=== PATIENT | female | born 1990 | race Caucasian/White ===

== ENCOUNTER → 2017-10-03 13:55 | Observation (INO) ==
--- NOTE | 2017-10-03 12:25 | OB/GYN Progress Note ---
Date of Encounter: 10/03/17 Time of Encounter: 12:23 - Assessment and Plan (1) 26 weeks gestation of Current Visit: Yes Status: Acute Continue care as scheduled labor precautions given Discharge orders given (2) Abdominal cramping affecting Current Visit: Yes Status: Acute UA- Large leukocytes/many bacteria; rx for macrobid given Vaginosis panel-negative Subjective - Subjective Interval history: Ms. [place] 27-year-old female at 26 weeks 3 days who presents with complaints of lower abdominal cramping with some vaginal discharge since Tuesday. She states she has also recently had some urinary frequency without urgency or dysuria. She endorses good movement and denies leakage of fluid and vaginal bleeding. She also denies headache, vision changes, epigastric pain. Objective - Exam FHR: category 1 FHR comments: Baseline 130 Moderate variability Accelerations present 10x10 Few variable decelerations FHR Category II Auscultation: bilateral: normal Abdomen: Present: normal appearance, soft, gravid Uterus: Present: normal, firm Comments: SSE: Copious amounts of thick, yellowish discharge observed.
[2017-10-03 12:46] LABS: Bilirubin,Urine Negative (Negative); Blood,Urine Large (Negative); Clarity,Urine Clear (Clear); Color,Urine Yellow (Yellow); Glucose,Urine (UA) Normal (Normal); Ketones,Urine Negative (Negative); Leukocyte Esterase,Urine Moderate (Negative); Nitrite,Urine Negative (Negative); Protein,Urine Negative (Neg-Trace); Urobilinogen,Urine Normal (Normal)
[2017-10-03 13:05] LABS: Squamous Epithelial Cell,Urine Moderate per lpf (None-Few)
[2017-10-03 13:07] LABS: Bacteria,Urine Many per hpf (None-Few)
[2017-10-03 13:32] LABS: Candida DNA Not Detected (Not Detect); Gardnerella DNA Not Detected (Not Detect); Trichomonas DNA Not Detected (Not Detect)
[2017-10-03 14:17] LABS: Amphetamine Screen,Urine Negative ng/mL (Cutoff=1000); Barbiturate Screen,Urine Negative ng/mL (Cutoff=200); Benzodiazepines Screen,Urine Negative ng/mL (Cutoff=200); Cannabinoid Screen,Urine Negative ng/mL (Cutoff = 50); Cocaine Screen,Urine Negative ng/mL (Cutoff= 300); Opiate Screen,Urine Negative ng/mL (Cutoff=300); Phencyclidine Screen,Urine Negative ng/mL (Cutoff=25)
== END | disposition home or self-care (01) ==
LOC: 1NENULAB
PROVIDERS: ADMIT Obstetrics & Gynecology; ATTEND Obstetrics & Gynecology

== ENCOUNTER → 2017-11-22 11:07 | Observation (INO) ==
--- NOTE | 2017-11-22 08:37 | OB/GYN Progress Note ---
Date of Encounter: 11/22/17 Time of Encounter: 08:32 - Assessment and Plan (1) 33 weeks gestation of Current Visit: Yes Status: Acute admitted for observation (2) Vaginal bleeding during Current Visit: Yes Status: Acute Post coital bleeding Blood type: O+ speculum exam: No active bleeding (3) NST (non-stress test) reactive on surveillance Current Visit: Yes Status: Acute FHR 155 bpm moderate variability +15x15 accels no decels noted. Cat. 1 tracing Subjective - Subjective Principal diagnosis: Vaginal bleeding Interval history: Patient is a 27 y/o at 33w4d presents to labor and delivery with complaints of vaginal bleeding that started after having intercourse this morning. Patient reports bleeding seems to have slowed down. Patient reports small blood clots earlier. Patient denies contractions or leaking fluid. Patient reports +FM. Patient denies any other concerns at this time. Antepartum ROS: vaginal bleeding (per HPI), no loss of fluid, no movement normal, no contractions Objective - Vital Signs Vital Signs: Intake and Output 11/21/17 11/22/17 11/22/17 23:59 07:59 15:59 Other: Weight 77.2 kg Patient Weight 11/22/17 23:59 Weight 77.2 kg - Exam FHR: auscultation normal, category 1 FHR comments: FHr 155 bpm moderate variability +15x15 accels no decels noted. irregular contractions noted. Cat. 1 tracing Auscultation: bilateral: normal Abdomen: Present: normal appearance, soft, gravid Uterus: Present: normal Cervical dilation: deferred Comments: Speculum exam: small amount of blood noted in vagina. NO active bleeding noted. Cervix appears to be closed.
[2017-11-22 08:41] LABS: Bilirubin,Urine Negative (Negative); Blood,Urine Large (Negative); Clarity,Urine Cloudy (Clear); Color,Urine Yellow (Yellow); Glucose,Urine (UA) Normal (Normal); Ketones,Urine Negative (Negative); Leukocyte Esterase,Urine Large (Negative); Nitrite,Urine Negative (Negative); PH,Urine 7.5 pH Units (5.0-8.0); Protein,Urine Trace mg/dL (Neg-Trace); Specific Gravity,Urine 1.011 (1.010-1.025); Urobilinogen,Urine Normal (Normal)
[2017-11-22 08:43] LABS: Bacteria,Urine Moderate per hpf (None-Few); Hyaline Casts,Urine Few per lpf (None-Few); Squamous Epithelial Cell,Urine Many per lpf (None-Few); WBC,Urine 30-50 per hpf (0-3)
[2017-11-22 08:50] LABS: Amphetamine Screen,Urine Negative ng/mL (Cutoff=1000); Barbiturate Screen,Urine Negative ng/mL (Cutoff=200); Benzodiazepines Screen,Urine Negative ng/mL (Cutoff=200); Cannabinoid Screen,Urine Negative ng/mL (Cutoff = 50); Cocaine Screen,Urine Negative ng/mL (Cutoff= 300); Opiate Screen,Urine Negative ng/mL (Cutoff=300); Phencyclidine Screen,Urine Negative ng/mL (Cutoff=25)
== END | disposition home or self-care (01) ==
LOC: 1NENULAB
PROVIDERS: ADMIT Advanced Practice Midwife; ATTEND Advanced Practice Midwife

== ENCOUNTER 2017-12-22 08:41 | Inpatient (IN) ==
[2017-12-22] MEDS ORDERED: Ringers Solution, Lactated 1,000 ML ONE ×2 (08:52→12:44)
[2017-12-22] MEDS ORDERED: Naloxone 0.4 MG/ML INJ IVP PRN (08:54)
[2017-12-22] MEDS ORDERED: *HR* Nalbuphine 10 MG/ML AMPUL IVP PRN (08:54)
[2017-12-22] MEDS ORDERED: Famotidine 20 MG/2 ML VIAL IVP PRN (08:54)
[2017-12-22] MEDS ORDERED: Metoclopramide 10 MG/2 ML VIAL IVP PRN (08:54)
[2017-12-22] MEDS ORDERED: Lidocaine 1% 20 ML MDV INFILT PRN (08:54)
[2017-12-22] MEDS ORDERED: D5% in Lactated Ringers 1,000 ML IVC SCH (09:00)
[2017-12-22] MEDS ORDERED: Oxytocin 20 units/ LR 1000 mL 20 UNIT/1,000 ML BAG IVC SCH (09:00)
[2017-12-22 09:17] LABS: Basophils # 0.1 K/mcL (0.0-0.2); Basophils % 0.3 %; Eosinophils # 0.1 K/mcL (0.0-0.6); Eosinophils % 0.7 %; Hemoglobin 13.1 g/dL (11.5-15.4); Lymphocytes # 1.9 K/mcL (0.6-4.6); Lymphocytes % 12.8 %; Mean Corpuscular HGB Conc 34.5 g/dL (31.6-35.5); Mean Corpuscular Hemoglobin 31.2 pg (28.0-33.3); Mean Corpuscular Volume 90.5 fL (83.0-100.0); Mean Platelet Volume 12.5 fL (9.4-12.4); Monocytes # 1.2 K/mcL (0.0-1.3); Monocytes % 8.5 %; Neutrophils # 11.2 K/mcL (1.6-8.9); Platelet Count 157 K/mcL (140-400); Red Cell Distribution Width 13.2 % (11.5-14.5); Segmented Neutrophils % 76.7 %
[2017-12-22 09:28] LABS: Amphetamine Screen,Urine Negative ng/mL (Cutoff=1000); Barbiturate Screen,Urine Negative ng/mL (Cutoff=200); Benzodiazepines Screen,Urine Negative ng/mL (Cutoff=200); Cannabinoid Screen,Urine Negative ng/mL (Cutoff = 50); Cocaine Screen,Urine Negative ng/mL (Cutoff= 300); Opiate Screen,Urine Negative ng/mL (Cutoff=300); Phencyclidine Screen,Urine Negative ng/mL (Cutoff=25)
[2017-12-22 09:43] LABS: Alanine Aminotransferase 10 Units/L (7-52); Aspartate Amino Transferase 16 Units/L (13-39); BUN/Creatinine Ratio 14 (6-26); Blood Urea Nitrogen 10 mg/dL (6-20); Lactate Dehydrogenase 158 Units/L (140-271); Uric Acid 4.5 mg/dL (2.3-7.6); eGFR For Non-African Americans > 60 (> 60)
[2017-12-22] MEDS ORDERED: *HR* FentaNYL (PF) 100 MCG/2 ML VIAL EP ONE (12:37)
[2017-12-22] MEDS ORDERED: Bupivacaine-MPF 0.25% 10 ML VIAL EP ONE (12:37)
[2017-12-22] MEDS ORDERED: Lidocaine -MPF 1% 5 ML AMPUL ONE (12:43)
[2017-12-22] MEDS ORDERED: Epidural Premix (fent/bupiv) 110 ML EP SCH (12:45)
--- NOTE | 2017-12-22 12:45 | OB/GYN History & Physical ---
Date of Encounter: 12/22/17 Time of Encounter: 10:00 Assessment and Plan (1) Intrauterine Current visit: Yes Status: Acute Admit to L&D for observation of labor Early labor Spontaneous rupture membranes Rh+ Maternal status reassuring Category 1 tracing Pain management plan epidural Labs-CBC and clot to hold Continuous electronic monitoring Anticipate Dr. Mtz is OB director oncology and is available as needed (2) 37 weeks gestation of Current visit: Yes Status: Acute History of Present Illness Chief complaint: SROM HPI: Ms. Williamson is a 27 year old female at 37 weeks 6 days gestation with an estimated date of of 01/06/18 dated by LMP. She presents with complaints of rupture of membranes this morning at 6 AM. She reports moderate amount of clear fluid. She states shortly after contractions began that were initially 7 minutes apart and thento 10 minutes apart. She reports now the contractions feel like they are coming closer together. Her has been complicated by gestational diabetes diet controlled. She has been seen by Dr. Early throughout her . records are available electronically and have been reviewed. Labs: O+ GBS negative Hep B negative HIV negative T. Palladium negative GC/CL negative Varicella immune Rubella immune Past Med Surg Social Fam HX - Past Medical History Medical history: other Additional medical history: hx: LEEP Psychiatric history: no psych history - Past Surgical History Surgical History: no surgical history - Social History Smoking Status: Never smoker Smokeless Tobacco Status: No Alcohol use: none Drug use: none - Family History Father Living Status: Still Living Hx Family Cardiac Disorders: No Hx Family Respiratory Disorders: No Hx Family Cancer: Yes (lymphoma) Hx Family GI Disorders: No Hx Family Endocrine Disorder: No Hx Family Neuromuscular Disorders: No Hx Family Neurologic Disorders: No Hx Family HEENT Disorders: No Hx Family Autoimmune Disorders: No Hx Family Medical Disorders: (lymphoma) Obstetrical History - Pregnancies : 1 Para: 0 Term: 0 : 0 Ab's: 0 Livin Medications and Allergies Calcium Phosphate Trib/Vit D3 [Calcium + Vitamin D3 Gummies] 1 tab PO DAILY 03/12 [History] Montelukast [Singulair] 10 mg PO DAILY 10/03/17 [History] Vitamins 1 tab PO DAILY 10/03/17 [History] 3 Allergy/AdvReac Type Severity Reaction Status Date / Time No Known Allergies Allergy Verified 11/22/17 08:12 Review of System OB All systems PM: reviewed and no additional remarkable complaints except as stated Exam - Constitutional Constitutional: well developed, well nourished, no acute distress, obese - HEENT HEENT: PERRL - Neck Neck exam: full ROM - Lungs Respiratory exam: CTAB - Cardiovascular Cardiovascular exam: RRR, +S1, +S2 - Breasts Breast: bilateral: normal - Abdomen Abdomen: Present: bowel sounds normal, gravid, non tender - Extremities Extremities exam: pedal edema, radial pulses palpable and symmetrical - Vulva Vulva: bilateral: normal - Vagina Vagina: Present: normal moisture, discharge - Cervix Dilation: 3 Effacement: 80 Station: -2 - Uterus Uterus exam: Present: normal size, normal contour - Adnexa Adnexa: bilateral: normal Results Result Diagrams: 12/22/17 08:50 12/22/17 08:50 Abnormal lab results WBC 14.6 K/mcL (4.3-11.1) H 12/22/17 08:50 MPV 12.5 fL (9.4-12.4) H 12/22/17 08:50 Neutrophils # 11.2 K/mcL (1.6-8.9) H 12/22/17 08:50 All other labs normal. - VTE Reasons for not Prescribing Prophylaxis: Treatment not Indicated - Low risk for VTE
[2017-12-22] MEDS ORDERED: Epidural Premix (fent/bupiv) 110 ML EP ONE (12:51)
[2017-12-22] MEDS ORDERED: Ondansetron 4 MG/2 ML VIAL IVP PRN (12:52)
[2017-12-22] MEDS ORDERED: Ringers Solution, Lactated 1,000 ML IVC SCH (13:00)
--- NOTE | 2017-12-22 13:17 | Anesthesia Evaluation PreOp ---
Date of Encounter: 12/22/17 Time of Encounter: 13:15 - Past History Planned Operation: jose Cardiac History: Denies any Significant Hx Pulmonary History: Denies Any Significant HX SERVICE MECHANIC History: Denies Any Significant HX Other Medical History: Diabetes Type II (gest), GERD Anesthesia History: No Prior Anesthetic Complications, Past Anesthesia (leep) : Yes Test: Negative Alcohol Use: none Drug use: none Medications and Allergies Calcium Phosphate Trib/Vit D3 [Calcium + Vitamin D3 Gummies] 1 tab PO DAILY 03/12 [History] Montelukast [Singulair] 10 mg PO DAILY 10/03/17 [History] Vitamins 1 tab PO DAILY 10/03/17 [History] 3 Allergy/AdvReac Type Severity Reaction Status Date / Time No Known Allergies Allergy Verified 11/22/17 08:12 - Meds/Allergy Pre-op Review Medications Reviewed: Yes Allergies Reviewed: Yes Beta Blockers on Current Med List: No Anesthesia Results - Labs 12/22/17 08:50 12/22/17 08:50 Anesthesia Exam 132/78 92 16 fht 132 Height: 5'2" Weight: 80 NPO (# of Hours): 6 Pain Scale: 8 Pain Scale Used: Numeric (1 - 10) - HEENT Pupil (Motor): Pupils equal Mallampati: II Teeth: Normal Oral Opening: Greater than 3 - SERVICE MECHANIC LOC: Oriented SERVICE MECHANIC Motor: Normal RUE, Normal LUE, Normal RLE, Normal LLE, Normal Face SERVICE MECHANIC Sensory: Normal: RUE, LUE, RLE, LLE, Face - Cardiac Rhythm: Regular Murmur: None - Pulmonary Breath Sounds: bilateral Clear Respiratory Effort: Symmetrical Anesthesia Assess/Plan ASA Score: 2 Modified [place] Scale for Level of Consciousness: Cooperative, oriented, and tranquil Anesthetic Plan: MAC Autologous Blood: No Monitoring Plan: Standard Monitors Recovery Plan: Other (risks discussed questions answered, consented)
--- NOTE | 2017-12-22 13:21 | Anesthesia Procedures ---
Date of Encounter: 12/22/17 Time of Encounter: 13:18 Procedures: Anesthesia - Epidural/Spinal Patient ID/Chart reviewed: Yes Patient examined: Yes OB Eval: Gestational age: 37.6 OB Eval: : 1 OB Eval: Hx Para: 0 OB Eval: Dilated at (cm): 4 OB Eval: Contractions: Non-stressed pattern Consent Obtained: Yes Supplemental Oxygen: None/Room Air Site Prep: Aseptic Technique, 0.5% Chlorhexidine/Alcohol Patient position: upright Local Anesthetic: Lidocaine 1% Amount of Local Anesthetic used: 3 Touhy Needle Gauge: 18 Touhy Needle Depth (cm): 6 Catheter Depth at Skin (cm): 15 Test Dose (1.5% Lido + Epi): Volume given (mls): 3 Test Dose Result: Negative Loading Dose: 0.25% Marcaine (mls): 8 Loading Dose: Fentanyl (mcg): 100 Loading Dose Administered: Thru Touhy Needle Infusion Med: 0.125% Bupivacaine w/ 2 mcg/ml Fentanyl Infusion Rate (mls/hr): 12 (pcea 5cc q30") Catheter Secured in Place: Tegaderm Interspace Used: L2-L3 Loss of Resistance (ANAID): Yes Blood: No CSF: No Paresthesia: Yes Procedure: aseptic, phil well, VSS,effective Vitals + FHT's: 90 16 fht 132
[2017-12-23 00:08] LABS: Alanine Aminotransferase 8 Units/L (7-52); Aspartate Amino Transferase 21 Units/L (13-39); BUN/Creatinine Ratio 15 (6-26); Blood Urea Nitrogen 7 mg/dL (6-20); Lactate Dehydrogenase 169 Units/L (140-271); Uric Acid 3.7 mg/dL (2.3-7.6); eGFR For Non-African Americans > 60 (> 60)
--- NOTE | 2017-12-23 00:49 | OB/GYN Procedure Note ---
Delivery - Delivery Date: 12/23/17 Provider: Jud Branch Intrapartum events: febrile- temp >100.3, prolonged 2nd stage>2.5hr Delivery induction: none Delivery augmentation: pitocin Delivery monitor: external FHT, external uterine Anesthesia: epidural Quantitated Blood Loss: 750 - Infant (s) Infant A Infant Delivery Date: 12/22/17 Infant Delivery Time: 22:19 Presentation: vertex Position: SUMMER Route of delivery: Gender: Male Viability: Viable Pounds: 6 Ounces: 12 Weight Gram: 3.075 kg at 1 minute: 9 at 5 mins: 9 Shoulder Dystocia: not encountered Specimens collected: cord blood Placenta: spontaneous Cord: 3 umbilical vessels - Repair Episiotomy: none Laceration Description: Perineal - 3rd Degree (repaired by Dr. Mtz) - Complications Delivery complications: hemorrhage Delivery comments: This is a 27-year-old G1 now P1 who is admitted for spontaneous rupture of membranes. She progressed with Pitocin augmentation to the second stage of labor. She pushed for more than 2-1/2 hours. She delivered a viable male , SUMMER over a partial third-degree laceration. was placed on the maternal abdomen where the cord was allowed to stop pulsating. The cord was then clamped by sports teacher and cut by father of baby. No nuchal cord was identified. No shoulder dystocia was encountered. scores were 9 at 1 minute and 9 at 5 minutes. The placenta delivered spontaneously, intact, with a three-vessel cord. Inspection revealed a partial third-degree laceration. At this point Dr. Mtz was called to assist with repair. Please see his additional notes regarding repair. The uterus was atonic with active bleeding requiring 1 amp Hemabate IM, and 1000 mg Cytotec per rectum. The bladder was emptied of approximately 300-400 mL clear yellow urine. The uterus then firmed up and the bleeding slowed. Placenta and umbilical artery blood gases were not sent. Mom and baby are skin to skin following delivery. I was gowned and gloved together with Dr. Hickman for this procedure. - Disposition Mom disposition: stable in LDR disposition: stable in LDR
[2017-12-23] MEDS ORDERED: Piperacillin/Tazobactam 3.375 GM in 0.9 % Sodium Chloride Mini Bag 100 ML IVPB SCH (00:50)
[2017-12-23 01:15] LABS: Bilirubin,Urine Negative (Negative); Blood,Urine Moderate (Negative); Clarity,Urine Clear (Clear); Color,Urine Yellow (Yellow); Glucose,Urine (UA) Normal (Normal); Ketones,Urine Negative (Negative); Leukocyte Esterase,Urine Trace (Negative); Nitrite,Urine Negative (Negative); Protein,Urine Negative (Neg-Trace); Specific Gravity,Urine < 1.005 (1.010-1.025); Urobilinogen,Urine Normal (Normal)
[2017-12-23 01:17] LABS: Bacteria,Urine None Seen per hpf (None-Few); Hyaline Casts,Urine None Seen per lpf (None-Few); Squamous Epithelial Cell,Urine Few per lpf (None-Few); WBC,Urine 0-3 per hpf (0-3)
[2017-12-23 01:30] LABS: Protein/Creatinine Ratio,Urine 0.22 mg/mg (0.00-0.20)
[2017-12-23] MEDS ORDERED: Benzocaine/Menthol 56 GM AEROSOL SPRAY TP PRN (06:33)
[2017-12-23] MEDS ORDERED: *HR* HYDROcodone/Acet 5/325 mg TABLET PO PRN (06:33)
[2017-12-23] MEDS ORDERED: Oxytocin 20 units/ LR 1000 mL 20 UNIT/1,000 ML BAG IVC SCH (06:33)
[2017-12-23] MEDS ORDERED: Acetaminophen 325 MG TABLET PO PRN (06:33)
[2017-12-23] MEDS ORDERED: miSOPROStol 100 MCG TABLET RC STA (06:33)
[2017-12-23] MEDS: Ibuprofen 600 MG TABLET PO PRN ×3 (06:52→21:18)
[2017-12-23] MEDS: Prenatal Vit/FA 1 EACH TABLET PO SCH (08:23)
[2017-12-23] MEDS: Piperacillin/Tazobactam 3.375 GM in 0.9 % Sodium Chloride Mini Bag 100 ML IVPB SCH ×2 (08:24→16:42)
--- NOTE | 2017-12-23 11:18 | OB/GYN Progress Note ---
Date of Encounter: 12/23/17 Time of Encounter: 11:16 - Assessment and Plan (1) Vaginal delivery Current Visit: Yes Status: Acute Stable PPD #1 Continue current management plan Anticipate discharge tomorrow. (2) Breast feeding status of mother Current Visit: Yes Status: Acute Subjective - Subjective Interval history: Cramping, pain managed on po pain medication, using dermplast spray, breast feeding. Afebrile at this time. Patient reports: appetite normal, voiding normally, pain well controlled, ambulating normally [place]: doing well, nursing well Objective - Latest Vital Signs Latest vital signs: Vital Signs Temp Pulse Pulse Resp BP Pulse Ox 12/23/17 07:30 98.6 F 98 16 130/92 12/23/17 05:10 98.5 F 93 93 16 136/89 98 12/23/17 04:10 98.7 F 105 105 16 143/83 98 12/23/17 02:50 98.9 F 109 109 16 140/96 98 Intake and Output 12/22/17 12/23/17 12/23/17 23:59 07:59 15:59 Intake Total 760 / 760 Output Total 200 / 200 300 / 300 Balance 560 / 560 -300 / -300 Intake: Oral 360 / 360 Other 400 / 400 Output: Urine 200 / 200 300 / 300 Other: Meal Breakfast Percent of Meal Consumed 100% Stool Size Smear Weight 77.196 kg Patient Weight 12/23/17 23:59 Weight 77.196 kg - Exam Lungs: bilateral: normal Chest: Normal S1, Normal S2 Extremities: Present: normal Abdomen: Present: normal appearance, soft Uterus: Present: firm Uterus Position: 2 Fingers Below Umbilicus - Labs Labs: Laboratory Results - last 24 hr 12/22/17 12/23/17 12/23/17 23:30 00:45 00:45 BUN 7 Creatinine 0.47 L Est GFR ( Amer) > 60 Est GFR (Non-Af Amer) > 60 BUN/Creatinine Ratio 15 Uric Acid 3.7 AST 21 ALT 8 Lactate Dehydrogenase 169 Urine Color Yellow Urine Clarity Clear Urine pH 7.0 Ur Specific [place] < 1.005 L Urine Protein Negative Urine Glucose (UA) Normal Urine Ketones Negative Urine Blood Moderate H Urine Nitrite Negative Urine Bilirubin Negative Urine Urobilinogen Normal Ur Leukocyte Esterase Trace H Urine Microscopic RBC 3-5 H Urine Microscopic WBC 0-3 Ur Squamous Epith Cells Few Urine Bacteria None Seen Hyaline Casts None Seen Urine Creatinine 36 Protein/Creatinin Ratio 0.22 H Urine Total Protein 8
[2017-12-23] MEDS ORDERED: Lanolin 7 G OINT...G. TP PRN (21:11)
[2017-12-24] MEDS: Piperacillin/Tazobactam 3.375 GM in 0.9 % Sodium Chloride Mini Bag 100 ML IVPB SCH (00:06)
[2017-12-24] MEDS: Ibuprofen 600 MG TABLET PO PRN (05:35)
[2017-12-24 07:18] LABS: Basophils # 0.1 K/mcL (0.0-0.2); Basophils % 0.4 %; Eosinophils # 0.3 K/mcL (0.0-0.6); Eosinophils % 1.6 %; Hematocrit 24.9 % (35.3-44.9); Immature Granulocytes % 1.5 % (0-4); Lymphocytes # 2.3 K/mcL (0.6-4.6); Lymphocytes % 11.8 %; Mean Corpuscular HGB Conc 34.1 g/dL (31.6-35.5); Mean Corpuscular Hemoglobin 31.3 pg (28.0-33.3); Mean Corpuscular Volume 91.5 fL (83.0-100.0); Mean Platelet Volume 12.1 fL (9.4-12.4); Monocytes # 1.7 K/mcL (0.0-1.3); Monocytes % 8.9 %; Neutrophils # 14.6 K/mcL (1.6-8.9); Platelet Count 150 K/mcL (140-400); Red Blood Count 2.72 M/mcL (3.82-4.97); Red Cell Distribution Width 13.6 % (11.5-14.5); Segmented Neutrophils % 75.8 %
[2017-12-24 07:22] LABS: Hemoglobin 8.5 g/dL (11.5-15.4)
[2017-12-24 09:36] VITALS: BP 130/82
--- NOTE | 2017-12-24 10:30 | Discharge Summary ---
Date of Encounter: 12/24/17 Time of Encounter: 10:28 - Discharge Diagnosis (1) Vaginal delivery Priority: Primary Status: Acute Comments: S/P vaginal delivery day 2. VSS Pain is well controlled Lochia is light and without clots Voiding and passing flatus without difficulty Breast feeding well. Discharge home today. (2) Breast feeding status of mother Priority: Secondary Status: Acute (3) Vaginal laceration Priority: Secondary Status: Acute Qualifiers: Encounter type: initial encounter Qualified Code(s): S31.41XA - Laceration without foreign body of vagina and vulva, initial encounter - Discharge Medications Prescriptions: HYDROcodone/Acet 5/325 mg [[place] 5-325 mg] 1 tab PO Q6HR PRN 7 Days #28 tablet PRN Reason: Moderate Pain (4-6) Ibuprofen [Motrin] 600 mg PO Q6HR PRN #30 tablet PRN Reason: Cramping Breast Pump [BREAST PUMP] 1 each .ROUTE AD #1 each Docusate [Colace] 100 mg PO BID PRN #60 capsule PRN Reason: Constipation Ferrous Sulfate 325 mg PO DAILY #90 tablet Home Medications: Calcium Phosphate Trib/Vit D3 [Calcium + Vitamin D3 Gummies] 1 tab PO DAILY 03/12 [History] Montelukast [Singulair] 10 mg PO DAILY 10/03/17 [History] Vitamins 1 tab PO DAILY 10/03/17 [History] Pulmicort Flexhaler 90mcg 90 mcg IH BID 12/23/17 [History] Acetaminophen [Tylenol] 650 mg PO Q6HR PRN tablet 12/24/17 [Rx] Benzocaine/Menthol [place] [Dermoplast [place]] 1 appl TP QID PRN aerosol 12/24/17 [Rx] Breast Pump [BREAST PUMP] 1 each .ROUTE AD #1 each 12/24/17 [Rx] Docusate [Colace] 100 mg PO BID PRN #60 capsule 12/24/17 [Rx] Ferrous Sulfate 325 mg PO DAILY #90 tablet 12/24/17 [Rx] HYDROcodone/Acet 5/325 mg [[place] 5-325 mg] 1 tab PO Q6HR PRN 7 Days #28 tablet 12/24/17 [Rx] Ibuprofen [Motrin] 600 mg PO Q6HR PRN #30 tablet 12/24/17 [Rx] Lanolin [Lansinoh] 1 appl TP TID PRN oint...g. 12/24/17 [Rx] Allergies/Adverse Reactions: 3 Allergy/AdvReac Type Severity Reaction Status Date / Time No Known Allergies Allergy Verified 11/22/17 08:12 Data Procedures and tests throughout hospitalization: Laboratory Tests 12/22/17 12/22/17 12/22/17 08:50 08:50 08:50 WBC 14.6 H RBC 4.20 Hgb 13.1 Hct 38.0 MCV 90.5 MCH 31.2 MCHC 34.5 RDW 13.2 Plt Count 157 MPV 12.5 H Immature Gran % 1.0 Seg Neutrophils % 76.7 Lymphocytes % 12.8 Monocytes % 8.5 Eosinophils % 0.7 Basophils % 0.3 Neutrophils # 11.2 H Lymphocytes # 1.9 Monocytes # 1.2 Eosinophils # 0.1 Basophils # 0.1 BUN 10 Creatinine 0.70 Est GFR ( Amer) > 60 Est GFR (Non-Af Amer) > 60 BUN/Creatinine Ratio 14 Uric Acid 4.5 AST 16 ALT 10 Lactate Dehydrogenase 158 Urine Color Urine Clarity Urine pH Ur Specific [place] Urine Protein Urine Glucose (UA) Urine Ketones Urine Blood Urine Nitrite Urine Bilirubin Urine Urobilinogen Ur Leukocyte Esterase Urine Microscopic RBC Urine Microscopic WBC Ur Squamous Epith Cells Urine Bacteria Hyaline Casts Urine Creatinine Protein/Creatinin Ratio Urine Total Protein Urine Opiates Screen Negative Ur Barbiturates Screen Negative Ur Phencyclidine Scrn Negative Ur Amphetamines Screen Negative U Benzodiazepines Scrn Negative Urine Cocaine Screen Negative U Marijuana (THC) Screen Negative Ur Drug Screen Interp See Below 12/22/17 12/23/17 12/23/17 23:30 00:45 00:45 WBC RBC Hgb Hct MCV MCH MCHC RDW Plt Count MPV Immature Gran % Seg Neutrophils % Lymphocytes % Monocytes % Eosinophils % Basophils % Neutrophils # Lymphocytes # Monocytes # Eosinophils # Basophils # BUN 7 Creatinine 0.47 L Est GFR ( Amer) > 60 Est GFR (Non-Af Amer) > 60 BUN/Creatinine Ratio 15 Uric Acid 3.7 AST 21 ALT 8 Lactate Dehydrogenase 169 Urine Color Yellow Urine Clarity Clear Urine pH 7.0 Ur Specific [place] < 1.005 L Urine Protein Negative Urine Glucose (UA) Normal Urine Ketones Negative Urine Blood Moderate H Urine Nitrite Negative Urine Bilirubin Negative Urine Urobilinogen Normal Ur Leukocyte Esterase Trace H Urine Microscopic RBC 3-5 H Urine Microscopic WBC 0-3 Ur Squamous Epith Cells Few Urine Bacteria None Seen Hyaline Casts None Seen Urine Creatinine 36 Protein/Creatinin Ratio 0.22 H Urine Total Protein 8 Urine Opiates Screen Ur Barbiturates Screen Ur Phencyclidine Scrn Ur Amphetamines Screen U Benzodiazepines Scrn Urine Cocaine Screen U Marijuana (THC) Screen Ur Drug Screen Interp 12/24/17 07:00 WBC 19.2 H RBC 2.72 L Hgb 8.5 L D Hct 24.9 L MCV 91.5 MCH 31.3 MCHC 34.1 RDW 13.6 Plt Count 150 MPV 12.1 Immature Gran % 1.5 Seg Neutrophils % 75.8 Lymphocytes % 11.8 Monocytes % 8.9 Eosinophils % 1.6 Basophils % 0.4 Neutrophils # 14.6 H Lymphocytes # 2.3 Monocytes # 1.7 H Eosinophils # 0.3 Basophils # 0.1 BUN Creatinine Est GFR ( Amer) Est GFR (Non-Af Amer) BUN/Creatinine Ratio Uric Acid AST ALT Lactate Dehydrogenase Urine Color Urine Clarity Urine pH Ur Specific [place] Urine Protein Urine Glucose (UA) Urine Ketones Urine Blood Urine Nitrite Urine Bilirubin Urine Urobilinogen Ur Leukocyte Esterase Urine Microscopic RBC Urine Microscopic WBC Ur Squamous Epith Cells Urine Bacteria Hyaline Casts Urine Creatinine Protein/Creatinin Ratio Urine Total Protein Urine Opiates Screen Ur Barbiturates Screen Ur Phencyclidine Scrn Ur Amphetamines Screen U Benzodiazepines Scrn Urine Cocaine Screen U Marijuana (THC) Screen Ur Drug Screen Interp Labs on day of discharge: Labs from last 24 hours 12/24/17 07:00 WBC 19.2 H RBC 2.72 L Hgb 8.5 L D Hct 24.9 L MCV 91.5 MCH 31.3 MCHC 34.1 RDW 13.6 Plt Count 150 MPV 12.1 Immature Gran % 1.5 Seg Neutrophils % 75.8 Lymphocytes % 11.8 Monocytes % 8.9 Eosinophils % 1.6 Basophils % 0.4 Neutrophils # 14.6 H Lymphocytes # 2.3 Monocytes # 1.7 H Eosinophils # 0.3 Basophils # 0.1 Date of admission: 12/22/17 08:41 Primary care physician: Torsten Paiz MD Consults: 12/23/17 06:33 Consult to Lodge Officer [CONS] Routine Comment: Vaginal delivery, consult needed Discharging clinician: Jud [place] Anticipated date of discharge: 12/24/17 - Patient Status Disposition: Home, Self-Care Condition: Good Functional capacity at discharge: independent ambulation Overall status at discharge: patient is progressing back to baseline - Discharge Instructions Follow Up With: Torsten Paiz MD [Primary Care Provider] - Vini Mtz MD [Partnered Physician] - - Diet and Activity Activity: increase activity as tolerated Diet: regular diet Hospital Course Reason for admission: IUP at term Delivery: Episiotomy: none Laceration: 3rd degree Other procedures: none complications: none Discharge diagnosis: IUP at term delivered baby: male Time Attestation: Total time spent providing and/or coordinating discharge services: Time Spent: Less than 30 minutes Exam - Constitutional Vitals: Temp Pulse Resp BP Pulse Ox 98.1 F 82 16 130/82 98 12/24/17 07:50 12/24/17 07:50 12/24/17 07:50 12/24/17 07:50 12/24/17 07:50 General appearance IM: cooperative, A&O X 3, pleasant - Respiratory Respiratory exam: Present: CTAB - Cardiovascular Cardiovascular exam IM: Present: RRR, +S1, +S2 - GI/Abdominal GI/Abdominal exam IM: normal bowel sounds, soft - Rectal Rectal exam: deferred - Uterine Tone: Firm Uterus Position: At Umbilicus, Midline - Extremities Exam Extremities exam IM: Present: normal capillary refill, normal inspection, radial pulses palpable and symmetrical - Neurological Exam Neurological exam: alert, oriented X3
[2017-12-24] MEDS: Prenatal Vit/FA 1 EACH TABLET PO SCH (10:39)
[2017-12-24] MEDS ORDERED: miSOPROStol 100 MCG TABLET PO ONE (12:14)
== END 2017-12-24 12:15 | disposition home or self-care (01) | DRG 774 ==
LOC: 1NENULAB → 1NENUOBS 12-23 03:14
PROVIDERS: ADMIT Student in an Organized Health Care Education/Training Program; ATTEND Student in an Organized Health Care Education/Training Program

== ENCOUNTER → 2020-12-06 21:05 | Observation (INO) ==
[2020-12-06 18:06] LABS: Basophils # 0.1 K/mcL (0.0-0.2); Basophils % 0.4 %; Eosinophils # 0.2 K/mcL (0.0-0.6); Eosinophils % 1.4 %; Hematocrit 36.2 % (35.3-44.9); Hemoglobin 12.4 g/dL (11.5-15.4); Immature Granulocytes % 0.6 % (0-4); Lymphocytes % 16.5 %; Mean Corpuscular HGB Conc 34.3 g/dL (31.6-35.5); Mean Corpuscular Hemoglobin 31.1 pg (28.0-33.3); Mean Corpuscular Volume 90.7 fL (83.0-100.0); Mean Platelet Volume 11.5 fL (9.4-12.4); Monocytes # 1.1 K/mcL (0.0-1.3); Monocytes % 8.9 %; Neutrophils # 8.9 K/mcL (1.6-8.9); Platelet Count 194 K/mcL (140-400); Red Blood Count 3.99 M/mcL (3.82-4.97); Red Cell Distribution Width 12.9 % (11.5-14.5); Segmented Neutrophils % 72.2 %; White Blood Count 12.3 K/mcL (4.3-11.1)
[2020-12-06 18:07] LABS: Bilirubin,Urine Negative (Negative); Blood,Urine Negative (Negative); Clarity,Urine Clear (Clear); Color,Urine Colorless (Yellow); Glucose,Urine (UA) Normal (Normal); Ketones,Urine Negative (Negative); Leukocyte Esterase,Urine Negative (Negative); Nitrite,Urine Negative (Negative); Protein,Urine Negative (Neg-Trace); Specific Gravity,Urine 1.005 (1.010-1.025); Urobilinogen,Urine Normal (Normal)
[2020-12-06 18:24] LABS: Creatinine,Urine 19 mg/dL
[2020-12-06 18:29] LABS: Alanine Aminotransferase 9 Units/L (7-52); Aspartate Amino Transferase 12 Units/L (13-39); BUN/Creatinine Ratio 14 (6-26); Blood Urea Nitrogen 10 mg/dL (6-20); Lactate Dehydrogenase 137 Units/L (140-271); Uric Acid 3.8 mg/dL (2.3-7.6); eGFR For African Americans > 60 (> 60); eGFR For Non-African Americans > 60 (> 60)
== END | disposition home or self-care (01) ==
LOC: 1NENULAB
PROVIDERS: ADMIT Registered Nurse; ATTEND Registered Nurse

== ENCOUNTER → 2021-01-28 22:05 | Observation (INO) ==
[2021-01-28 21:30] LABS: Bacteria,Urine Few per hpf (None-Few); Bilirubin,Urine Negative (Negative); Blood,Urine Negative (Negative); Clarity,Urine Turbid (Clear); Color,Urine Light-Yellow (Yellow); Glucose,Urine (UA) Normal (Normal); Ketones,Urine Negative (Negative); Leukocyte Esterase,Urine Large (Negative); Mucus,Urine Few per lpf (None-Few); Nitrite,Urine Negative (Negative); PH,Urine 6.5 pH Units (5.0-8.0); Protein,Urine Negative (Neg-Trace); Squamous Epithelial Cell,Urine Moderate per hpf (None-Few); Urobilinogen,Urine Normal (Normal); WBC,Urine 15-30 per hpf (0-3)
[2021-01-28 21:31] LABS: Basophils % 0.3 %; Eosinophils # 0.2 K/mcL (0.0-0.6); Eosinophils % 1.3 %; Hematocrit 33.5 % (35.3-44.9); Hemoglobin 11.6 g/dL (11.5-15.4); Immature Granulocytes % 0.6 % (0-4); Lymphocytes # 2.3 K/mcL (0.6-4.6); Lymphocytes % 19.2 %; Mean Corpuscular HGB Conc 34.6 g/dL (31.6-35.5); Mean Corpuscular Hemoglobin 31.3 pg (28.0-33.3); Mean Corpuscular Volume 90.3 fL (83.0-100.0); Mean Platelet Volume 11.6 fL (9.4-12.4); Monocytes # 1.2 K/mcL (0.0-1.3); Monocytes % 10.1 %; Neutrophils # 8.2 K/mcL (1.6-8.9); Platelet Count 183 K/mcL (140-400); Red Blood Count 3.71 M/mcL (3.82-4.97); Red Cell Distribution Width 12.6 % (11.5-14.5); Segmented Neutrophils % 68.5 %
[2021-01-28 21:36] LABS: Protein/Creatinine Ratio,Urine 0.17 mg/mg (0.00-0.20)
[2021-01-28 21:47] LABS: Alanine Aminotransferase 10 Units/L (7-52); Aspartate Amino Transferase 16 Units/L (13-39); BUN/Creatinine Ratio 19 (6-26); Blood Urea Nitrogen 13 mg/dL (6-20); Lactate Dehydrogenase 158 Units/L (140-271); Uric Acid 4.4 mg/dL (2.3-7.6); eGFR For African Americans > 60 (> 60); eGFR For Non-African Americans > 60 (> 60)
[~2021-01-28 22:05] MED LIST: EPHEDrine 50 MG/ML VIAL IVP PRN; Epidural Premix (fent/bupiv) 110 ML EP SCH
== END | disposition home or self-care (01) ==
LOC: 1NENULAB
PROVIDERS: ADMIT Advanced Practice Midwife; ATTEND Advanced Practice Midwife

== ENCOUNTER 2021-02-01 17:02 | Inpatient (IN) ==
[2021-02-01 14:20] LABS: Basophils % 0.4 %; Eosinophils # 0.1 K/mcL (0.0-0.6); Eosinophils % 1.1 %; Hemoglobin 11.4 g/dL (11.5-15.4); Immature Granulocytes % 0.4 % (0-4); Lymphocytes # 1.6 K/mcL (0.6-4.6); Lymphocytes % 14.5 %; Mean Corpuscular HGB Conc 33.5 g/dL (31.6-35.5); Mean Corpuscular Hemoglobin 30.2 pg (28.0-33.3); Mean Corpuscular Volume 89.9 fL (83.0-100.0); Mean Platelet Volume 11.7 fL (9.4-12.4); Monocytes % 8.9 %; Neutrophils # 8.3 K/mcL (1.6-8.9); Platelet Count 167 K/mcL (140-400); Red Blood Count 3.78 M/mcL (3.82-4.97); Red Cell Distribution Width 12.9 % (11.5-14.5); Segmented Neutrophils % 74.7 %; White Blood Count 11.2 K/mcL (4.3-11.1)
[2021-02-01 14:29] LABS: Alanine Aminotransferase 9 Units/L (7-52); Aspartate Amino Transferase 16 Units/L (13-39); BUN/Creatinine Ratio 13 (6-26); Blood Urea Nitrogen 9 mg/dL (6-20); Lactate Dehydrogenase 148 Units/L (140-271); Uric Acid 4.8 mg/dL (2.3-7.6); eGFR For African Americans > 60 (> 60); eGFR For Non-African Americans > 60 (> 60)
[2021-02-01 15:08] LABS: Protein/Creatinine Ratio,Urine 0.17 mg/mg (0.00-0.20)
[~2021-02-01 17:02] MED LIST changes: +*HR* Labetalol 20 MG/4 ML SYRINGE IVP PRN; +*HR* Nalbuphine 10 MG/ML AMPUL IV PRN; +Betamethasone Acet/SodPhos 30 MG/5 ML VIAL IM SCH; +Calcium Gluconate 1,000 MG/10 ML VIAL IVP PRN; -EPHEDrine 50 MG/ML VIAL IVP PRN; -Epidural Premix (fent/bupiv) 110 ML EP SCH; +Famotidine 20 MG/2 ML VIAL IVP PRN; +Magnesium Sulf 20 gm/SW 500mL 20 GM/500 ML IV.SOLN IVC SCH; +Metoclopramide 10 MG/2 ML VIAL IVP PRN; +Naloxone 0.4 MG/ML INJ IVP PRN; +Ondansetron 4 MG/2 ML VIAL IVP PRN; +Oxytocin 20 units/ LR 1000 mL 20 UNIT/1,000 ML BAG IVC SCH; +Penicillin G Potassium 5,000,000 UNIT in 0.9 % Sodium Chloride Mini Bag 100 ML IVPB ONE; +Ringers Solution, Lactated 1,000 ML ONE
[2021-02-01 18:33] LABS: Amphetamine Screen,Urine Negative ng/mL (Cutoff=1000); Barbiturate Screen,Urine Negative ng/mL (Cutoff=200); Benzodiazepines Screen,Urine Negative ng/mL (Cutoff=200); Cannabinoid Screen,Urine Negative ng/mL (Cutoff = 50); Cocaine Screen,Urine Negative ng/mL (Cutoff= 300); Opiate Screen,Urine Negative ng/mL (Cutoff=300); Phencyclidine Screen,Urine Negative ng/mL (Cutoff=25)
[2021-02-01 18:47] LABS: Influenza A PCR Negative (Negative); Influenza B PCR Negative (Negative); Resp. Syncytial Virus PCR Negative (Negative)
[2021-02-01 18:48] LABS: SARS-CoV-2 by PCR (In House) Negative (Negative)
[2021-02-01] MEDS ORDERED: Penicillin G Potassium 2,500,000 UNIT in 0.9 % Sodium Chloride 100 ML IVPB SCH (20:00)
[2021-02-01] MEDS ORDERED: Ropivacaine/PF 0.2% 20 ML VIAL EP ONE (20:39)
[2021-02-01] MEDS ORDERED: EPHEDrine 50 MG/ML VIAL IVP PRN (20:39)
[2021-02-01] MEDS ORDERED: *HR* FentaNYL (PF) 100 MCG/2 ML VIAL EP ONE (20:39)
[2021-02-01] MEDS ORDERED: Epidural Premix (fent/bupiv) 110 ML EP SCH (20:45)
[2021-02-01] MEDS ORDERED: Ringers Solution, Lactated 1,000 ML ONE (21:13)
[2021-02-01] MEDS ORDERED: *HR* FentaNYL (PF) 100 MCG/2 ML VIAL ONE (21:18)
[2021-02-01] MEDS ORDERED: Ropivacaine/PF 0.2% 20 ML VIAL ONE (21:18)
[2021-02-02] MEDS ORDERED: Oxytocin 20 units/ LR 1000 mL 20 UNIT/1,000 ML BAG IVC ONE (02:09)
[2021-02-02] MEDS ORDERED: Calcium Gluconate 1,000 MG/10 ML VIAL IVP PRN (02:09)
[2021-02-02] MEDS ORDERED: Benzocaine/Menthol 56 GM AEROSOL SPRAY TP PRN (02:09)
[2021-02-02] MEDS ORDERED: Ondansetron ODT 4 MG TAB.RAPDIS SL PRN (02:09)
[2021-02-02] MEDS ORDERED: Lanolin 7 G OINT...G. TP PRN (02:09)
[2021-02-02] MEDS: Oxytocin 20 units/ LR 1000 mL 20 UNIT/1,000 ML BAG IVC SCH ×2 (02:45→11:59)
[2021-02-02] MEDS: Magnesium Sulf 20 gm/SW 500mL 20 GM/500 ML IV.SOLN IVC SCH ×2 (02:45→12:00)
[2021-02-02] MEDS: Ibuprofen 600 MG TABLET PO SCH ×3 (05:47→21:15)
[2021-02-02] MEDS: Acetaminophen 325 MG TABLET PO SCH ×2 (08:58→17:17)
[2021-02-02] MEDS: Prenatal Vit/FA 1 EACH TABLET PO SCH (08:58)
[2021-02-03] MEDS: Ibuprofen 600 MG TABLET PO SCH ×3 (03:34→15:40)
[2021-02-03 05:01] LABS: Basophils % 0.3 %; Eosinophils # 0.1 K/mcL (0.0-0.6); Eosinophils % 0.4 %; Hematocrit 32.8 % (35.3-44.9); Immature Granulocytes % 1.8 % (0-4); Lymphocytes # 1.5 K/mcL (0.6-4.6); Lymphocytes % 9.8 %; Mean Corpuscular HGB Conc 33.5 g/dL (31.6-35.5); Mean Corpuscular Hemoglobin 30.4 pg (28.0-33.3); Mean Corpuscular Volume 90.6 fL (83.0-100.0); Monocytes # 1.2 K/mcL (0.0-1.3); Neutrophils # 12.3 K/mcL (1.6-8.9); Platelet Count 191 K/mcL (140-400); Red Blood Count 3.62 M/mcL (3.82-4.97); Segmented Neutrophils % 79.7 %; White Blood Count 15.5 K/mcL (4.3-11.1)
[2021-02-03 05:24] LABS: Alanine Aminotransferase 17 Units/L (7-52); Aspartate Amino Transferase 24 Units/L (13-39); BUN/Creatinine Ratio 13 (6-26); Blood Urea Nitrogen 10 mg/dL (6-20); Uric Acid 4.4 mg/dL (2.3-7.6); eGFR For African Americans > 60 (> 60); eGFR For Non-African Americans > 60 (> 60)
[2021-02-03 06:33] LABS: Lactate Dehydrogenase 301 Units/L (140-271)
[2021-02-03] MEDS: Acetaminophen 325 MG TABLET PO SCH ×3 (07:45→19:47)
[2021-02-03] MEDS: Prenatal Vit/FA 1 EACH TABLET PO SCH (07:45)
[2021-02-03] MEDS ORDERED: *HR* Labetalol 20 MG/4 ML SYRINGE IVP ONE (08:02)
[2021-02-03] MEDS: Famotidine 20 MG TABLET PO SCH (19:48)
[2021-02-04] MEDS: Ibuprofen 600 MG TABLET PO SCH ×4 (00:21→20:16)
[2021-02-04] MEDS: Famotidine 20 MG TABLET PO SCH ×2 (08:38→20:17)
[2021-02-04] MEDS: Prenatal Vit/FA 1 EACH TABLET PO SCH (08:38)
[2021-02-04] MEDS: Acetaminophen 325 MG TABLET PO SCH ×2 (08:43→14:01)
[2021-02-05] MEDS: Ibuprofen 600 MG TABLET PO SCH (05:48)
[2021-02-05 05:57] VITALS: O2SAT 97
[2021-02-05] MEDS ORDERED: NIFEdipine XL (24 HR) 30 MG TAB.ER.24 PO SCH (09:00)
[2021-02-05] MEDS: Famotidine 20 MG TABLET PO SCH (09:40)
[2021-02-05] MEDS: Prenatal Vit/FA 1 EACH TABLET PO SCH (09:40)
[2021-02-05] MEDS: Acetaminophen 325 MG TABLET PO SCH ×2 (09:40→15:09)
[2021-02-05 11:47] VITALS: BP 135/86; PULSE 85; TEMP 97.8
== END 2021-02-05 16:36 | disposition home or self-care (01) | DRG 807 ==
LOC: 1NENULAB → 1NENUOBS 02-02 04:21
PROVIDERS: ADMIT Obstetrics & Gynecology; ATTEND Obstetrics & Gynecology